=== PATIENT | male | born 1995 | race Caucasian/White ===

== ENCOUNTER 2024-01-19 16:49 | Emergency (ER) | payer OTHER ==
[~2024-01-19] VITALS: Ht 175.3 cm; Wt 79.4 kg
[2024-01-19 17:01] VITALS: BP 135/66; TEMP 99; O2SAT 97
[2024-01-19] MEDS ORDERED: ONDA4TAB5 PO (17:08)
[2024-01-19] MEDS ORDERED: ONDANSETRON 4 MG TAB.RAPDIS ONE (17:14)
[2024-01-19] MEDS: ONDANSETRON 4 MG TAB.RAPDIS SL ONE (17:15)
== END 2024-01-19 17:52 | disposition home or self-care (01) ==
LOC: ER 16:54
DX: R11.10 Vomiting, unspecified (principal)
CPT/HCPCS: 99283; Q0162